=== PATIENT | male | born 1980 | race Caucasian/White ===

== ENCOUNTER 2016-12-04 08:39 | Inpatient (IN) | payer OTHER ==
[2016-12-04 08:57] VITALS: BMI 37.5
[2016-12-04] MEDS ORDERED: IBUPROFEN 400 MG TABLET (FP) PO PRN (10:27)
[2016-12-04] MEDS ORDERED: guaiFENesin/D-METHORPHAN HB 10 ML UNIT-DOSE CUPS PO PRN (10:27)
[2016-12-04] MEDS ORDERED: ACETAMINOPHEN 325 MG TABLET (FP) PO PRN (10:27)
[2016-12-04] MEDS ORDERED: hydrOXYzine PAMOATE 50 MG CAPSULE (FP) PO PRN (10:27)
[2016-12-04] MEDS ORDERED: LOPERAMIDE HCL 2 MG CAPSULE PO PRN (10:27)
[2016-12-04] MEDS ORDERED: P-EPHED 60MG/TRIPROLIDI 2.5MG TABLET PO PRN (10:27)
[2016-12-04] MEDS ORDERED: MENTHOL/PHENOL 1 EACH UD MM PRN (10:27)
[2016-12-04] MEDS ORDERED: MAG HYDROX/AL HYDROX/SIMETH 30 ML UNIT-DOSE CUP PO PRN (10:27)
[2016-12-04] MEDS ORDERED: MAGNESIUM HYDROX 2400MG/30ML ORAL SUSPENSION 30 ML CUP PO PRN (10:27)
[2016-12-04] MEDS ORDERED: MAGNESIUM CITRATE 300 ML BOTTLE PO PRN (10:27)
--- NOTE | 2016-12-04 10:29 | HP ---
COWS - Scale Resting Pulse: 1= [place] 81-100 Sweatin= Beads of Sweat on Face Restless Observation: 1= Difficult to Sit Still Pupil Size: 2= Moderately Dilated Bone or Joint Aches: 2= Severe Diffuse Aches Runny Nose/ Eye Tearin= Runny Nose/Eyes GI Upset > 30mins: 2= Nausea/Diarrhea Tremor Observation: 2= Slight Tremor Visible Yawning Observation: 1= 1-2x During Session Anxiety or Irritability: 2=Irritable/Anxious Goose Flesh Skin: 0=Smooth Skin COWS Score: 18 Admission ROS S - HPI Chief Complaint: Withdrawal sx. Allergies/Adverse Reactions: Allergies Allergy/AdvReac Type Severity Reaction Status Date / Time amoxicillin Allergy Unknown unknown Verified 12/04/16 10:20 penicillin G Allergy Unknown unknown Verified 12/04/16 10:20 History of Present Illness: 36 y/o man with a 3 yr. hx. of heroin dependence is admitted for detox. Pt. had one previous detox & rehab in June 2016. Exam Limitations: No Limitations - Ebola screening Have you traveled outside of the country in the last 21 days: No Have you had contact with anyone from an Ebola affected area: No Have you been sick,other than usual withdrawal symptoms: No Do you have a fever: No - Review of Systems Constitutional: Diaphoresis EENT: reports: Nose Congestion Respiratory: reports: No Symptoms reported Cardiac: reports: No Symptoms Reported GI: reports: Diarrhea, Nausea, Abdominal cramping : reports: No Symptoms Reported Musculoskeletal: reports: Back Pain, Joint Pain, Muscle Pain Integumentary: reports: Sweating Neuro: reports: Tremors Endocrine: reports: No Symptoms Reported Hematology: reports: No Symptoms Reported Psychiatric: reports: No Sypmtoms Reported Other Systems: Reviewed and Negative Patient History - Patient Medical History Hx Anemia: No Hx Asthma: No Hx Chronic Obstructive Pulmonary Disease (COPD): No Hx Cancer: No Hx Cardiac Disorders: No Hx Congestive Heart Failure: No Hx Hypertension: No Hx Hypercholesterolemia: No Hx Pacemaker: No HX Cerebrovascular Accident: No Hx Seizures: No Hx Dementia: No Hx Diabetes: No Hx Gastrointestinal Disorders: No Hx Liver Disease: Yes Hx Genitourinary Disorders: No Hx Sexually Transmitted Disorders: No Hx Renal Disease (ESRD): No Hx Thyroid Disease: No Hx Human Immunodeficiency Virus (HIV): No Hx Hepatitis C: Yes (Needs treatment) Hx Depression: No Hx Suicide Attempt: No Hx Bipolar Disorder: No Hx Schizophrenia: No - Patient Surgical History Past Surgical History: No Hx Neurologic Surgery: No Hx Cataract Extraction: No Hx Cardiac Surgery: No Hx Lung Surgery: No Hx Breast Surgery: No Hx Breast Biopsy: No Hx Abdominal Surgery: No Hx Appendectomy: No Hx Cholecystectomy: No Hx Genitourinary Surgery: No Hx Section: No Hx Orthopedic Surgery: No Anesthesia Reaction: No - PPD History Previous Implant?: Yes Documented Results: Negative w/o proof Implanted On Prior [facility] Admission?: No PPD to be Administered?: Yes - Smoking Cessation Smoking history: Current every day smoker Have you smoked in the past 12 months: Yes Aproximately how many cigarettes per day: 20 Hx Chewing Tobacco Use: No Initiated information on smoking cessation: Yes 'Breaking Loose' booklet given: 12/04/16 - Substance & Tx. History Hx Alcohol Use: No Hx Substance Use: Yes Substance Use Type: Heroin Hx Substance Use Treatment: Yes (Detox & Rehab at [facility] 06/2016) - Substances Abused Heroin Route: Injection Frequency: Daily Amount used: 20-30 bags Age of first use: 33 Date of Last Use: 12/03/16 Family Disease History - Family Disease History Family Disease History: Diabetes: Grandparent, Heart Disease: Grandparent, Father (HTN,Pulmonary fibrosis), Other: Father Admission Physical Exam [facility] - Vital Signs Vital Signs: Vital Signs - 24 hr 12/04/16 08:53 Temperature 96.8 F L Pulse Rate 82 Respiratory 18 Rate Blood Pressure 140/80 - Physical General Appearance: Yes: Tremorous, Irritable, Sweating, Anxious HEENTM: Yes: Nasal Congestion, Rhinorrhea Respiratory: Yes: Chest Non-Tender, Lungs Clear, Normal Breath Sounds Neck: Yes: Supple Breast: Yes: Breast Exam Deferred Cardiology: Yes: Regular Rhythm, Regular Rate, S1, S2 Abdominal: Yes: Normal Bowel Sounds, Non Tender, Soft Genitourinary: Yes: Within Normal Limits Back: Yes: Within Normal Limits Musculoskeletal: Yes: Within Normal Limits Extremities: Yes: Tremors Neurological: Yes: Fully Oriented, Alert Integumentary: Yes: Diaphoresis Lymphatic: Yes: Within Normal Limits - Diagnostic (1) Opioid dependence with withdrawal Current Visit: Yes Status: Acute Cleared for Admission [facility] - Detox or Rehab [facility] Level of Care: Medically Managed Detox Regimen/Protocol: Methadone [facility]HS Breath Alcohol Content Breath Alcohol Content: 0 Urine Drug Screen - Results Drug Screen Negative: No Urine Drug Screen Results: ANA-Cocaine, OPI-Opiates, MTD-Methadone
[2016-12-04] MEDS: diazePAM 5 MG TABLET PO PRN ×2 (11:25→22:30)
[2016-12-04] MEDS: cloNIDine HCL 0.1 MG TABLET PO SCH ×2 (11:25→22:31)
[2016-12-04 11:45] LABS: MEAN PLT VOLUME 8.4 fl (7.5-11.1)
[2016-12-04] MEDS ORDERED: METHADONE HCL 10 MG TABLET (FOR DETOX USE ONLY) PO ONE ×2 (11:45→23:00)
[2016-12-04 11:46] LABS: MCH 29.4 pg (25.7-33.7); MCHC 33.2 g/dl (32.0-35.9); MEAN CELL VOLUME 88.6 fl (80-96); PLATELET COUNT 285 K/MM3 (134-434); RDW 14.9 % (11.9-15.9); WHITE BLOOD COUNT 9.5 K/mm3 (4.0-10.0)
[2016-12-04 12:03] LABS: ALBUMIN 3.6 g/dl (3.4-5.0); ANION GAP 8 (8-16); BILIRUBIN,TOTAL 0.5 mg/dL (0.2-1.0); CALCIUM 8.9 mg/dL (8.5-10.1); CO2 26 mmol/L (21-32); GLUCOSE,RANDOM 107 mg/dL (74-106); SGOT/AST 11 U/L (15-37); TOT PROT 7.3 g/dl (6.4-8.2)
[2016-12-04 12:05] LABS: ALK PHOS 81 U/L (45-117); SGPT/ALT 21 U/L (12-78)
[2016-12-04 12:35] LABS: SICKLE CELL SCREEN NEGATIVE (NEGATIVE)
[2016-12-04 12:41] LABS: HIV 1 & 2 AB NEGATIVE; HIV 1 AGp24 NEGATIVE
[2016-12-04] MEDS: NICOTINE 21 MG/24 HOURS TOPICAL PATCH TD SCH (13:47)
[2016-12-04] MEDS: CYCLOBENZAPRINE HCL 10 MG TABLET (FP) PO SCH ×2 (13:56→22:28)
[2016-12-04 17:56] LABS: URINE APPEARANCE SLCLOUDY; URINE BILIRUBIN NEGATIVE (NEGATIVE); URINE BLOOD NEGATIVE (NEGATIVE); URINE COLOR DKYELLOW; URINE GLUCOSE (UA) NEGATIVE (NEGATIVE); URINE KETONE NEGATIVE (NEGATIVE)
[2016-12-04 17:57] LABS: URINE LEUK ESTERASE NEGATIVE (NEGATIVE); URINE NITRITE NEGATIVE (NEGATIVE); URINE PROTEIN NEGATIVE (NEGATIVE); URINE UROBILINOGEN NEGATIVE mg/dL (0.2-1.0)
[2016-12-04] MEDS: THIAMINE HCL 100 MG TABLET (FP) PO SCH (22:28)
[2016-12-04] MEDS: diphenhydrAMINE HCL 50 MG CAPSULE PO PRN (22:28)
[2016-12-05] MEDS: diazePAM 5 MG TABLET PO PRN ×4 (07:40→22:22)
[2016-12-05] MEDS: CYCLOBENZAPRINE HCL 10 MG TABLET (FP) PO SCH ×3 (07:43→22:17)
--- NOTE | 2016-12-05 09:53 | PN ---
BHS COWS - Scale Resting Pulse: 0= [place] 80 or Below Sweatin= Chills/Flushing Restless Observation: 3= Extraneous Movement Pupil Size: 2= Moderately Dilated Bone or Joint Aches: 4=Acute Joint/Muscle Pain Runny Nose/ Eye Tearin= Nasal Congestion GI Upset > 30mins: 1= Stomach Cramp Tremor Observation of Outstretched Hands: 2= Slight Tremor Visible Yawning Observation: 1= 1-2x During Session Anxiety or Irritability: 2=Irritable/Anxious Goose Flesh Skin: 0=Smooth Skin COWS Score: 17 BHS Progress Note (SOAP) Subjective: ANXIETY,IRRITABILITY,TREMORS,SWEATS,MUSCLE ACHES Objective: 12/05/16 09:53 Vital Signs Temperature 96.4 F L 12/05/16 09:25 Pulse Rate 56 L 12/05/16 09:25 Respiratory Rate 18 12/05/16 09:25 Blood Pressure 141/92 12/05/16 09:25 O2 Sat by Pulse Oximetry (%) Laboratory Last Values WBC 9.5 K/mm3 (4.0-10.0) 12/04/16 10:40 RBC 4.40 M/mm3 (4.00-5.60) 12/04/16 10:40 Hgb 12.9 GM/dL (11.7-16.9) 12/04/16 10:40 Hct 39.0 % (35.4-49) 12/04/16 10:40 MCV 88.6 fl (80-96) 12/04/16 10:40 MCH 29.4 pg (25.7-33.7) 12/04/16 10:40 MCHC 33.2 g/dl (32.0-35.9) 12/04/16 10:40 RDW 14.9 % (11.9-15.9) 12/04/16 10:40 Plt Count 285 K/MM3 (134-434) 12/04/16 10:40 MPV 8.4 fl (7.5-11.1) 12/04/16 10:40 Sickle Cell Screen Negative (NEGATIVE) 12/04/16 10:40 Sodium 141 mmol/L (136-145) 12/04/16 10:40 Potassium 3.7 mmol/L (3.5-5.1) 12/04/16 10:40 Chloride 107 mmol/L (98-107) 12/04/16 10:40 Carbon Dioxide 26 mmol/L (21-32) 12/04/16 10:40 Anion Gap 8 (8-16) 12/04/16 10:40 BUN 11 mg/dL (7-18) 12/04/16 10:40 Creatinine 1.0 mg/dL (0.7-1.3) 12/04/16 10:40 Creat Clearance w eGFR > 60 (>60) 12/04/16 10:40 Random Glucose 107 mg/dL (74-106) H 12/04/16 10:40 Calcium 8.9 mg/dL (8.5-10.1) 12/04/16 10:40 Total Bilirubin 0.5 mg/dL (0.2-1.0) 12/04/16 10:40 AST 11 U/L (15-37) L 12/04/16 10:40 ALT 21 U/L (12-78) 12/04/16 10:40 Alkaline Phosphatase 81 U/L (45-117) 12/04/16 10:40 Total Protein 7.3 g/dl (6.4-8.2) 12/04/16 10:40 Albumin 3.6 g/dl (3.4-5.0) 12/04/16 10:40 Urine Color Dkyellow 12/04/16 14:00 Urine Appearance Slcloudy 12/04/16 14:00 Urine pH 5.0 (5.0-8.0) 12/04/16 14:00 Ur Specific [place] >= 1.030 (1.005-1.025) H 12/04/16 14:00 Urine Protein Negative (NEGATIVE) 12/04/16 14:00 Urine Glucose (UA) Negative (NEGATIVE) 12/04/16 14:00 Urine Ketones Negative (NEGATIVE) 12/04/16 14:00 Urine Blood Negative (NEGATIVE) 12/04/16 14:00 Urine Nitrite Negative (NEGATIVE) 12/04/16 14:00 Urine Bilirubin Negative (NEGATIVE) 12/04/16 14:00 Urine Urobilinogen Negative mg/dL (0.2-1.0) 12/04/16 14:00 Ur Leukocyte Esterase Negative (NEGATIVE) 12/04/16 14:00 HIV 1&2 Antibody Screen Negative 12/04/16 09:30 HIV P24 Antigen Negative 12/04/16 09:30 Assessment: 12/05/16 09:53 WITHDRAWALS SX Plan: CONTINUE DETOX
[2016-12-05] MEDS ORDERED: METHADONE HCL 10 MG TABLET (FOR DETOX USE ONLY) PO ONE (10:00)
[2016-12-05] MEDS: PRENATAL VITAMINS W/ FOLIC ACID TABLET (FP) PO SCH (10:16)
[2016-12-05] MEDS: cloNIDine HCL 0.1 MG TABLET PO SCH ×2 (10:16→22:17)
[2016-12-05] MEDS: NICOTINE POLACRILEX 2 MG GUM BC PRN (10:17)
[2016-12-05] MEDS: NICOTINE 21 MG/24 HOURS TOPICAL PATCH TD SCH (10:17)
--- NOTE | 2016-12-05 12:57 | EKG ---
Test Reason : Blood Pressure : / mmHG Vent. Rate : 065 BPM Atrial Rate : 065 BPM P-R Int : 132 ms QRS Dur : 098 ms QT Int : 400 ms P-R-T Axes : 029 -05 -09 degrees QTc Int : 416 ms NORMAL SINUS RHYTHM INCOMPLETE RIGHT BUNDLE BRANCH BLOCK VOLTAGE CRITERIA FOR LEFT VENTRICULAR HYPERTROPHY NONSPECIFIC T WAVE ABNORMALITY ABNORMAL ECG NO PREVIOUS ECGS AVAILABLE Confirmed by BASIL SILVA MD ([id number]) on 12/05/2016 12:57:01 PM Referred By: Confirmed By:BASIL SILVA MD
[2016-12-05] MEDS: THIAMINE HCL 100 MG TABLET (FP) PO SCH (22:17)
[2016-12-06] MEDS: CYCLOBENZAPRINE HCL 10 MG TABLET (FP) PO SCH ×3 (05:51→22:12)
[2016-12-06] MEDS: diazePAM 5 MG TABLET PO PRN ×5 (05:52→22:38)
[2016-12-06] MEDS ORDERED: METHADONE HCL 5 MG TABLET (FOR DETOX USE ONLY) PO ONE (10:00)
[2016-12-06] MEDS: PRENATAL VITAMINS W/ FOLIC ACID TABLET (FP) PO SCH (10:14)
[2016-12-06] MEDS: cloNIDine HCL 0.1 MG TABLET PO SCH ×2 (10:15→22:12)
[2016-12-06] MEDS: NICOTINE 21 MG/24 HOURS TOPICAL PATCH TD SCH (10:16)
[2016-12-06] MEDS: NICOTINE POLACRILEX 2 MG GUM BC PRN (10:17)
--- NOTE | 2016-12-06 11:15 | PN ---
BHS COWS - Scale Resting Pulse: 0= [place] 80 or Below Sweatin= Chills/Flushing Restless Observation: 3= Extraneous Movement Pupil Size: 2= Moderately Dilated Bone or Joint Aches: 4=Acute Joint/Muscle Pain Runny Nose/ Eye Tearin= Nasal Congestion GI Upset > 30mins: 1= Stomach Cramp Tremor Observation of Outstretched Hands: 2= Slight Tremor Visible Yawning Observation: 1= 1-2x During Session Anxiety or Irritability: 2=Irritable/Anxious Goose Flesh Skin: 0=Smooth Skin COWS Score: 17 BHS Progress Note (SOAP) Subjective: ANXIETY,SWEATS,TREMORS,IRRITABILITY. Objective: 12/06/16 11:14 Vital Signs Temperature 96.4 F L 12/06/16 10:06 Pulse Rate 59 L 12/06/16 10:06 Respiratory Rate 18 12/06/16 10:06 Blood Pressure 138/95 12/06/16 10:06 O2 Sat by Pulse Oximetry (%) Laboratory Last Values WBC 9.5 K/mm3 (4.0-10.0) 12/04/16 10:40 RBC 4.40 M/mm3 (4.00-5.60) 12/04/16 10:40 Hgb 12.9 GM/dL (11.7-16.9) 12/04/16 10:40 Hct 39.0 % (35.4-49) 12/04/16 10:40 MCV 88.6 fl (80-96) 12/04/16 10:40 MCH 29.4 pg (25.7-33.7) 12/04/16 10:40 MCHC 33.2 g/dl (32.0-35.9) 12/04/16 10:40 RDW 14.9 % (11.9-15.9) 12/04/16 10:40 Plt Count 285 K/MM3 (134-434) 12/04/16 10:40 MPV 8.4 fl (7.5-11.1) 12/04/16 10:40 Sickle Cell Screen Negative (NEGATIVE) 12/04/16 10:40 Sodium 141 mmol/L (136-145) 12/04/16 10:40 Potassium 3.7 mmol/L (3.5-5.1) 12/04/16 10:40 Chloride 107 mmol/L (98-107) 12/04/16 10:40 Carbon Dioxide 26 mmol/L (21-32) 12/04/16 10:40 Anion Gap 8 (8-16) 12/04/16 10:40 BUN 11 mg/dL (7-18) 12/04/16 10:40 Creatinine 1.0 mg/dL (0.7-1.3) 12/04/16 10:40 Creat Clearance w eGFR > 60 (>60) 12/04/16 10:40 Random Glucose 107 mg/dL (74-106) H 12/04/16 10:40 Calcium 8.9 mg/dL (8.5-10.1) 12/04/16 10:40 Total Bilirubin 0.5 mg/dL (0.2-1.0) 12/04/16 10:40 AST 11 U/L (15-37) L 12/04/16 10:40 ALT 21 U/L (12-78) 12/04/16 10:40 Alkaline Phosphatase 81 U/L (45-117) 12/04/16 10:40 Total Protein 7.3 g/dl (6.4-8.2) 12/04/16 10:40 Albumin 3.6 g/dl (3.4-5.0) 12/04/16 10:40 Urine Color Dkyellow 12/04/16 14:00 Urine Appearance Slcloudy 12/04/16 14:00 Urine pH 5.0 (5.0-8.0) 12/04/16 14:00 Ur Specific [place] >= 1.030 (1.005-1.025) H 12/04/16 14:00 Urine Protein Negative (NEGATIVE) 12/04/16 14:00 Urine Glucose (UA) Negative (NEGATIVE) 12/04/16 14:00 Urine Ketones Negative (NEGATIVE) 12/04/16 14:00 Urine Blood Negative (NEGATIVE) 12/04/16 14:00 Urine Nitrite Negative (NEGATIVE) 12/04/16 14:00 Urine Bilirubin Negative (NEGATIVE) 12/04/16 14:00 Urine Urobilinogen Negative mg/dL (0.2-1.0) 12/04/16 14:00 Ur Leukocyte Esterase Negative (NEGATIVE) 12/04/16 14:00 HIV 1&2 Antibody Screen Negative 12/04/16 09:30 HIV P24 Antigen Negative 12/04/16 09:30 Assessment: 12/06/16 11:15 WITHDRAWAL SX Plan: CONTINUE DETOX
[2016-12-06] MEDS: CLINDAMYCIN HCL 150 MG CAPSULE (FP) PO SCH ×2 (17:11→23:28)
[2016-12-06] MEDS: THIAMINE HCL 100 MG TABLET (FP) PO SCH (22:11)
[2016-12-06] MEDS: diphenhydrAMINE HCL 50 MG CAPSULE PO PRN (22:39)
[2016-12-06] MEDS: BACITRACIN 0.9 GM PACKET TP SCH (22:50)
[2016-12-07] MEDS: CLINDAMYCIN HCL 150 MG CAPSULE (FP) PO SCH ×4 (05:50→23:02)
[2016-12-07] MEDS: CYCLOBENZAPRINE HCL 10 MG TABLET (FP) PO SCH ×3 (05:50→22:12)
[2016-12-07] MEDS: diazePAM 5 MG TABLET PO PRN ×2 (05:52→10:11)
[2016-12-07] MEDS ORDERED: METHADONE HCL 5 MG TABLET (FOR DETOX USE ONLY) PO ONE (10:00)
[2016-12-07] MEDS: PRENATAL VITAMINS W/ FOLIC ACID TABLET (FP) PO SCH (10:11)
[2016-12-07] MEDS: cloNIDine HCL 0.1 MG TABLET PO SCH ×2 (10:11→22:12)
[2016-12-07] MEDS: NICOTINE 21 MG/24 HOURS TOPICAL PATCH TD SCH (10:12)
[2016-12-07] MEDS: BACITRACIN 0.9 GM PACKET TP SCH ×2 (10:12→22:12)
[2016-12-07] MEDS: NICOTINE POLACRILEX 2 MG GUM BC PRN ×2 (10:15→14:54)
--- NOTE | 2016-12-07 10:39 | PN ---
BHS Progress Note (SOAP) Subjective: ANXIETY,SWEATS,FATIGUE. Objective: 12/07/16 10:38 Vital Signs Temperature 96.9 F L 12/07/16 10:33 Pulse Rate 66 12/07/16 10:33 Respiratory Rate 18 12/07/16 10:33 Blood Pressure 146/97 12/07/16 10:33 O2 Sat by Pulse Oximetry (%) Assessment: 12/07/16 10:38 WITHDRAWAL SX Plan: CONTINUE DETOX
[2016-12-07] MEDS: THIAMINE HCL 100 MG TABLET (FP) PO SCH (22:12)
[2016-12-07] MEDS: diphenhydrAMINE HCL 50 MG CAPSULE PO PRN (22:13)
[2016-12-08] MEDS: CYCLOBENZAPRINE HCL 10 MG TABLET (FP) PO SCH (05:51)
[2016-12-08] MEDS: CLINDAMYCIN HCL 150 MG CAPSULE (FP) PO SCH ×2 (05:51→11:13)
[2016-12-08 09:53] VITALS: BP 142/91; PULSE 85; TEMP 97.2
[2016-12-08] MEDS ORDERED: METHADONE HCL 10 MG TABLET (FOR DETOX USE ONLY) PO ONE (10:00)
[2016-12-08] MEDS: cloNIDine HCL 0.1 MG TABLET PO SCH (10:08)
[2016-12-08] MEDS: PRENATAL VITAMINS W/ FOLIC ACID TABLET (FP) PO SCH (10:08)
[2016-12-08] MEDS: NICOTINE 21 MG/24 HOURS TOPICAL PATCH TD SCH (10:08)
[2016-12-08] MEDS: BACITRACIN 0.9 GM PACKET TP SCH (10:08)
--- NOTE | 2016-12-08 19:12 | DS ---
[facility] Detox Discharge Summary Admission Date: 12/04/16 Discharge Date: 12/08/16 - History Present History: Opioid Dependence Additional Comments: PATIENT GOING HOME AND WILL RETURN TO WORK. PATIENT NOTES THAT HE WILL LOOK INTO LOCAL 12-STEP / NA OUTPATIENT SUPPORT GROUP MEETINGS FOR AFTERCARE. PATIENT DISCHARGED FROM UNIT IN STABLE MEDICAL CONDITION. Pertinent Past History: Hep C. - Physical Exam Results Vital Signs: Vital Signs Temperature 97.2 F L 12/08/16 09:50 Pulse Rate 85 12/08/16 09:50 Respiratory Rate 18 12/08/16 09:50 Blood Pressure 142/91 12/08/16 09:50 O2 Sat by Pulse Oximetry (%) Pertinent Admission Physical Exam Findings: WITHDRAWAL SYMPTOMS. Laboratory Tests 12/04/16 12/04/16 12/04/16 09:30 10:40 10:40 WBC 9.5 RBC 4.40 Hgb 12.9 Hct 39.0 MCV 88.6 MCH 29.4 MCHC 33.2 RDW 14.9 Plt Count 285 MPV 8.4 Sickle Cell Screen Negative Sodium 141 Potassium 3.7 Chloride 107 Carbon Dioxide 26 Anion Gap 8 BUN 11 Creatinine 1.0 Creat Clearance w eGFR > 60 Random Glucose 107 H Calcium 8.9 Total Bilirubin 0.5 AST 11 L ALT 21 Alkaline Phosphatase 81 Total Protein 7.3 Albumin 3.6 Urine Color Urine Appearance Urine pH Ur Specific [place] Urine Protein Urine Glucose (UA) Urine Ketones Urine Blood Urine Nitrite Urine Bilirubin Urine Urobilinogen Ur Leukocyte Esterase RPR Titer HIV 1&2 Antibody Screen Negative HIV P24 Antigen Negative 12/04/16 12/04/16 10:40 14:00 WBC RBC Hgb Hct MCV MCH MCHC RDW Plt Count MPV Sickle Cell Screen Sodium Potassium Chloride Carbon Dioxide Anion Gap BUN Creatinine Creat Clearance w eGFR Random Glucose Calcium Total Bilirubin AST ALT Alkaline Phosphatase Total Protein Albumin Urine Color Dkyellow Urine Appearance Slcloudy Urine pH 5.0 Ur Specific [place] >= 1.030 H Urine Protein Negative Urine Glucose (UA) Negative Urine Ketones Negative Urine Blood Negative Urine Nitrite Negative Urine Bilirubin Negative Urine Urobilinogen Negative Ur Leukocyte Esterase Negative RPR Titer Nonreactive HIV 1&2 Antibody Screen HIV P24 Antigen LABS NOTED. - Treatment Hospital Course: Detox Protocol Followed, Detoxed Safely, Responded well, Discharged Condition Good Patient has Accepted a Rehab Referral to: PT. GOING HOME, WILL PURSUE OUTPATIENT 12-STEP / NA SUPPORT GROUP MEETINGS. - Medication Discharge Medications: Ambulatory Orders NK [No Known Home Medication] 12/04/16 - Diagnosis (1) Opioid dependence with withdrawal Status: Acute - AMA Did Patient Leave Against Medical Advice: No
[2016-12-09] MEDS ORDERED: METHADONE HCL 5 MG TABLET (FOR DETOX USE ONLY) PO ONE (06:00)
== END 2016-12-08 11:05 | disposition home or self-care (01) | DRG 773 ==
LOC: YASAS 08:39 → Y3N 10:50
PROVIDERS: ADMIT Internal Medicine; ATTEND Internal Medicine
PROC: HZ2ZZZZ Detoxification Services for Substance Abuse Treatment (ICD-10-PCS; principal; 2016-12-08)
DX: F11.23 Opioid dependence with withdrawal (principal); F17.210 Nicotine dependence, cigarettes, uncomplicated; B18.2 Chronic viral hepatitis C
CPT/HCPCS: 36415; 80053; 81003; 85027; 85660; 86593; 87389; 93005; 93010

== ENCOUNTER 2017-02-08 08:47 | Inpatient (IN) | payer OTHER ==
[2017-02-08 10:38] VITALS: BMI 39.1
--- NOTE | 2017-02-08 13:57 | HP ---
COWS - Scale Resting Pulse: 0= [place] 80 or Below Sweatin= Chills/Flushing Restless Observation: 1= Difficult to Sit Still Pupil Size: 1= Pupils >than Normal Bone or Joint Aches: 2= Severe Diffuse Aches Runny Nose/ Eye Tearin= Runny Nose/Eyes GI Upset > 30mins: 2= Nausea/Diarrhea Tremor Observation: 1= Tremor [place], Not Seen Yawning Observation: 0= None Anxiety or Irritability: 1=Feels Anxious/Irritable Goose Flesh Skin: 3=Piloerection COWS Score: 14 Admission ROS S - HPI Chief Complaint: I need help to stop using heroin and cocaine Allergies/Adverse Reactions: Allergies Allergy/AdvReac Type Severity Reaction Status Date / Time amoxicillin Allergy Unknown unknown Verified 02/08/17 11:45 penicillin G Allergy Unknown unknown Verified 02/08/17 11:45 History of Present Illness: h/o opioid dep. since age 31 . Started after being rx'ed with vicodin for herniated disc disease. Pt then moved onto [facility] at age 34. Exam Limitations: No Limitations - Ebola screening Have you traveled outside of the country in the last 21 days: No Have you had contact with anyone from an Ebola affected area: No Have you been sick,other than usual withdrawal symptoms: No - Review of Systems Constitutional: Malaise EENT: reports: Nose Congestion Respiratory: reports: No Symptoms reported Cardiac: reports: No Symptoms Reported GI: reports: Nausea : reports: No Symptoms Reported Musculoskeletal: reports: Joint Pain (hips and other joints) Integumentary: reports: No Symptoms Reported Neuro: reports: No Symptoms reported Endocrine: reports: No Symptoms Reported Hematology: reports: No Symptoms Reported Psychiatric: reports: No Sypmtoms Reported Other Systems: Reviewed and Negative Patient History - Patient Medical History Hx Anemia: No Hx Asthma: No Hx Chronic Obstructive Pulmonary Disease (COPD): No Hx Cancer: No Hx Cardiac Disorders: No Hx Congestive Heart Failure: No Hx Hypertension: No Hx Hypercholesterolemia: No Hx Pacemaker: No HX Cerebrovascular Accident: No Hx Seizures: No Hx Dementia: No Hx Diabetes: No Hx Gastrointestinal Disorders: No Hx Liver Disease: Yes Hx Genitourinary Disorders: No Hx Sexually Transmitted Disorders: No Hx Renal Disease (ESRD): No Hx Thyroid Disease: No Hx Human Immunodeficiency Virus (HIV): No Hx Hepatitis C: Yes (Needs treatment) Hx Depression: No Hx Suicide Attempt: No Hx Bipolar Disorder: No Hx Schizophrenia: No - Patient Surgical History Past Surgical History: No Hx Neurologic Surgery: No Hx Cataract Extraction: No Hx Cardiac Surgery: No Hx Lung Surgery: No Hx Breast Surgery: No Hx Breast Biopsy: No Hx Abdominal Surgery: No Hx Appendectomy: No Hx Cholecystectomy: No Hx Genitourinary Surgery: No Hx Section: No Hx Orthopedic Surgery: No Anesthesia Reaction: No - PPD History Previous Implant?: Yes Documented Results: Negative w/proof Implanted On Prior [facility] Admission?: Yes Date: 12/06/16 Results: 0 mm - Reproductive History Patient is a Female of Child Bearing Age (11 -55 yrs old): No - Smoking Cessation Smoking history: Current every day smoker Have you smoked in the past 12 months: Yes Aproximately how many cigarettes per day: 20 Cigars Per Day: 0 Hx Chewing Tobacco Use: No Initiated information on smoking cessation: Yes 'Breaking Loose' booklet given: 02/08/17 - Substance & Tx. History Hx Alcohol Use: No Hx Substance Use: Yes Substance Use Type: Cocaine, Heroin Hx Substance Use Treatment: Yes - Substances Abused Heroin Route: Injection Frequency: Daily Amount used: 3-4 bags Age of first use: 34 Date of Last Use: 02/08/17 Cocaine Route: Inhalation Frequency: 1-3 times last 30 days Amount used: $20./use Age of first use: 19 Date of Last Use: 02/04/17 Family Disease History - Family Disease History Family Disease History: Diabetes: Grandparent, Heart Disease: Grandparent, Father (HTN,Pulmonary fibrosis), Other: Father Admission Physical Exam BHS - Vital Signs Vital Signs: Vital Signs - 24 hr 02/08/17 10:36 Temperature 96.6 F L Pulse Rate 62 Respiratory 20 Rate Blood Pressure 126/84 36 y/o obese m pt aox3, appearing uncomfortable in nad and cooperative with exam. - Physical General Appearance: Yes: Disheveled, Obese, Irritable, Sweating HEENTM: Yes: EOMI, Hearing grossly Normal, Normocephalic, Normal Voice, ESTRELLA, Nasal Congestion Respiratory: Yes: Chest Non-Tender, Lungs Clear, Normal Breath Sounds, No Respiratory Distress Neck: Yes: Supple, Trachea in good position Breast: Yes: Within Normal Limits Cardiology: Yes: Regular Rhythm, Regular Rate, S1, S2 Abdominal: Yes: Non Tender, Flat, Increased Bowel Sounds, Protuberent Genitourinary: Yes: Within Normal Limits Back: Yes: Decreased Range of Motion Musculoskeletal: Yes: Joint Stiffness, Muscle Pain Extremities: Yes: Within Normal Limits Neurological: Yes: mechanical maintenance foreman II-XII NML intact, Fully Oriented, Alert, Motor Strength 5/5 Integumentary: Yes: Moist, Other (multiple tattooos arms chest rajesh.) Lymphatic: Yes: Within Normal Limits - Diagnostic (1) Opioid dependence with withdrawal Current Visit: Yes Status: Chronic (2) History of herniated intervertebral disc Current Visit: Yes Status: Chronic (3) Hx of hepatitis C Current Visit: Yes Status: Chronic (4) Obesity Current Visit: Yes Status: Chronic Cleared for Admission [facility] - Detox or Rehab [facility] Level of Care: Medically Managed Detox Regimen/Protocol: Methadone [facility] Breath Alcohol Content Breath Alcohol Content: 0 Urine Drug Screen - Results Drug Screen Negative: No Urine Drug Screen Results: ANA-Cocaine, OPI-Opiates, MDMA-Ecstasy, BZO- Benzodiazepines
[2017-02-08] MEDS ORDERED: guaiFENesin/D-METHORPHAN HB 10 ML UNIT-DOSE CUPS PO PRN (14:08)
[2017-02-08] MEDS ORDERED: MAGNESIUM CITRATE 300 ML BOTTLE PO PRN (14:08)
[2017-02-08] MEDS ORDERED: IBUPROFEN 400 MG TABLET (FP) PO PRN (14:08)
[2017-02-08] MEDS ORDERED: ACETAMINOPHEN 325 MG TABLET (FP) PO PRN (14:08)
[2017-02-08] MEDS ORDERED: P-EPHED 60MG/TRIPROLIDI 2.5MG TABLET PO PRN (14:08)
[2017-02-08] MEDS ORDERED: MAG HYDROX/AL HYDROX/SIMETH 30 ML UNIT-DOSE CUP PO PRN (14:08)
[2017-02-08] MEDS ORDERED: MAGNESIUM HYDROX 2400MG/30ML ORAL SUSPENSION 30 ML CUP PO PRN (14:08)
[2017-02-08] MEDS ORDERED: MENTHOL/PHENOL 1 EACH UD MM PRN (14:08)
[2017-02-08] MEDS ORDERED: LOPERAMIDE HCL 2 MG CAPSULE PO PRN (14:08)
[2017-02-08] MEDS ORDERED: METHADONE HCL 10 MG TABLET (FOR DETOX USE ONLY) PO ONE ×2 (14:12→23:00)
[2017-02-08] MEDS: diazePAM 5 MG TABLET PO PRN ×3 (14:53→23:24)
[2017-02-08 18:57] LABS: URINE APPEARANCE CLEAR; URINE BILIRUBIN NEGATIVE (NEGATIVE); URINE BLOOD NEGATIVE (NEGATIVE); URINE COLOR YELLOW; URINE GLUCOSE (UA) NEGATIVE (NEGATIVE); URINE KETONE NEGATIVE (NEGATIVE); URINE NITRITE NEGATIVE (NEGATIVE); URINE PROTEIN NEGATIVE (NEGATIVE); URINE UROBILINOGEN NEGATIVE mg/dL (0.2-1.0)
[2017-02-08 21:37] LABS: URINE LEUK ESTERASE Negative (NEGATIVE)
[2017-02-08] MEDS: diphenhydrAMINE HCL 50 MG CAPSULE PO PRN (22:46)
[2017-02-08] MEDS: THIAMINE HCL 100 MG TABLET (FP) PO SCH (22:46)
[2017-02-09] MEDS: diazePAM 5 MG TABLET PO PRN ×4 (05:48→22:34)
[2017-02-09] MEDS: hydrOXYzine PAMOATE 25 MG CAPSULE (FP) PO PRN ×2 (09:05→13:56)
[2017-02-09] MEDS ORDERED: METHADONE HCL 10 MG TABLET (FOR DETOX USE ONLY) PO ONE (10:00)
[2017-02-09] MEDS: NICOTINE 21 MG/24 HOURS TOPICAL PATCH TD SCH (10:20)
[2017-02-09] MEDS: PRENATAL VITAMINS W/ FOLIC ACID TABLET (FP) PO SCH (10:20)
[2017-02-09 11:05] LABS: MCH 29.2 pg (25.7-33.7); MCHC 33.6 g/dl (32.0-35.9); MEAN PLT VOLUME 9.5 fl (7.5-11.1); PLATELET COUNT 281 K/MM3 (134-434); RDW 16.3 % (11.9-15.9); WHITE BLOOD COUNT 9.6 K/mm3 (4.0-10.0)
[2017-02-09 11:27] LABS: ALBUMIN 3.6 g/dl (3.4-5.0); ALK PHOS 80 U/L (45-117); ANION GAP 9 (8-16); BILIRUBIN,TOTAL 0.5 mg/dL (0.2-1.0); CALCIUM 8.9 mg/dL (8.5-10.1); CO2 28 mmol/L (21-32); CREATININE 0.7 mg/dL (0.7-1.3); GLUCOSE,RANDOM 103 mg/dL (74-106); SGOT/AST 8 U/L (15-37); SGPT/ALT 18 U/L (12-78); TOT PROT 6.8 g/dl (6.4-8.2)
--- NOTE | 2017-02-09 13:26 | PN ---
BHS COWS - Scale Resting Pulse: 1= [place] 81-100 Sweatin= Chills/Flushing Restless Observation: 3= Extraneous Movement Pupil Size: 1= Pupils >than Normal Bone or Joint Aches: 2= Severe Diffuse Aches Runny Nose/ Eye Tearin= Runny Nose/Eyes GI Upset > 30mins: 3= Vomiting/Diarrhea Tremor Observation of Outstretched Hands: 2= Slight Tremor Visible Yawning Observation: 1= 1-2x During Session Anxiety or Irritability: 2=Irritable/Anxious Goose Flesh Skin: 0=Smooth Skin COWS Score: 18 S Progress Note (SOAP) Subjective: ALERT,IRRITABLE,ANXIOUS,INTERRUPTED SLEEP,TREMOR,PAIN IN THE BODY AND BACK, TREMOR Objective: 02/09/17 13:24 Vital Signs Temperature 97.9 F 02/09/17 10:33 Pulse Rate 83 02/09/17 10:33 Respiratory Rate 20 02/09/17 10:33 Blood Pressure 154/83 02/09/17 10:33 O2 Sat by Pulse Oximetry (%) EKG NSR,NORMAL ECG 02/09/17 13:25 Laboratory Last Values WBC 9.6 K/mm3 (4.0-10.0) 02/09/17 06:08 RBC 4.30 M/mm3 (4.00-5.60) 02/09/17 06:08 Hgb 12.6 GM/dL (11.7-16.9) 02/09/17 06:08 Hct 37.4 % (35.4-49) 02/09/17 06:08 MCV 87.0 fl (80-96) 02/09/17 06:08 MCH 29.2 pg (25.7-33.7) 02/09/17 06:08 MCHC 33.6 g/dl (32.0-35.9) 02/09/17 06:08 RDW 16.3 % (11.9-15.9) H 02/09/17 06:08 Plt Count 281 K/MM3 (134-434) 02/09/17 06:08 MPV 9.5 fl (7.5-11.1) D 02/09/17 06:08 Sodium 139 mmol/L (136-145) 02/09/17 06:08 Potassium 3.7 mmol/L (3.5-5.1) 02/09/17 06:08 Chloride 102 mmol/L (98-107) 02/09/17 06:08 Carbon Dioxide 28 mmol/L (21-32) 02/09/17 06:08 Anion Gap 9 (8-16) 02/09/17 06:08 BUN 13 mg/dL (7-18) 02/09/17 06:08 Creatinine 0.7 mg/dL (0.7-1.3) D 02/09/17 06:08 Creat Clearance w eGFR > 60 (>60) 02/09/17 06:08 Random Glucose 103 mg/dL (74-106) 02/09/17 06:08 Calcium 8.9 mg/dL (8.5-10.1) 02/09/17 06:08 Total Bilirubin 0.5 mg/dL (0.2-1.0) 02/09/17 06:08 AST 8 U/L (15-37) L D 02/09/17 06:08 ALT 18 U/L (12-78) 02/09/17 06:08 Alkaline Phosphatase 80 U/L (45-117) 02/09/17 06:08 Total Protein 6.8 g/dl (6.4-8.2) 02/09/17 06:08 Albumin 3.6 g/dl (3.4-5.0) 02/09/17 06:08 Urine Color Yellow 02/08/17 17:30 Urine Appearance Clear 02/08/17 17:30 Urine pH 5.0 (5.0-8.0) 02/08/17 17:30 Ur Specific [place] 1.020 (1.005-1.025) 02/08/17 17:30 Urine Protein Negative (NEGATIVE) 02/08/17 17:30 Urine Glucose (UA) Negative (NEGATIVE) 02/08/17 17:30 Urine Ketones Negative (NEGATIVE) 02/08/17 17:30 Urine Blood Negative (NEGATIVE) 02/08/17 17:30 Urine Nitrite Negative (NEGATIVE) 02/08/17 17:30 Urine Bilirubin Negative (NEGATIVE) 02/08/17 17:30 Urine Urobilinogen Negative mg/dL (0.2-1.0) 02/08/17 17:30 Ur Leukocyte Esterase Negative (NEGATIVE) 02/08/17 17:30 RPR Titer Nonreactive (NONREACTIVE) 02/09/17 06:08 Assessment: 02/09/17 13:25 WITHDRAWAL SYMPTOM Plan: CONTINUE DETOX
[2017-02-09] MEDS: CYCLOBENZAPRINE HCL 10 MG TABLET (FP) PO PRN (13:56)
[2017-02-09] MEDS: cloNIDine HCL 0.1 MG TABLET PO SCH (22:32)
[2017-02-09] MEDS: THIAMINE HCL 100 MG TABLET (FP) PO SCH (22:33)
[2017-02-09] MEDS: NICOTINE POLACRILEX 4 MG GUM BUC PRN (23:04)
--- NOTE | 2017-02-10 09:12 | EKG ---
Test Reason : Blood Pressure : / mmHG Vent. Rate : 063 BPM Atrial Rate : 063 BPM P-R Int : 132 ms QRS Dur : 088 ms QT Int : 430 ms P-R-T Axes : 038 007 002 degrees QTc Int : 440 ms NORMAL SINUS RHYTHM NORMAL ECG WHEN COMPARED WITH ECG OF 04-DEC-2016 10:31, INCOMPLETE RIGHT BUNDLE BRANCH BLOCK IS NO LONGER PRESENT NONSPECIFIC T WAVE ABNORMALITY NO LONGER EVIDENT IN LATERAL LEADS Confirmed by RICARDO BAE, BASIL ([id number]) on 02/10/2017 9:12:21 AM Referred By: Confirmed By:BASIL SILVA MD
[2017-02-10] MEDS ORDERED: METHADONE HCL 5 MG TABLET (FOR DETOX USE ONLY) PO ONE (10:00)
[2017-02-10] MEDS: cloNIDine HCL 0.1 MG TABLET PO SCH ×2 (10:14→22:12)
[2017-02-10] MEDS: CYCLOBENZAPRINE HCL 10 MG TABLET (FP) PO PRN ×2 (10:15→19:18)
[2017-02-10] MEDS: NICOTINE 21 MG/24 HOURS TOPICAL PATCH TD SCH (10:15)
[2017-02-10] MEDS: diazePAM 5 MG TABLET PO PRN ×3 (10:15→19:46)
[2017-02-10] MEDS: PRENATAL VITAMINS W/ FOLIC ACID TABLET (FP) PO SCH (10:15)
--- NOTE | 2017-02-10 13:37 | PN ---
[facility] COWS - Scale Resting Pulse: 0= CT 80 or Below Sweatin= Chills/Flushing Restless Observation: 3= Extraneous Movement Pupil Size: 1= Pupils >than Normal Bone or Joint Aches: 2= Severe Diffuse Aches Runny Nose/ Eye Tearin= Nasal Congestion GI Upset > 30mins: 2= Nausea/Diarrhea Tremor Observation of Outstretched Hands: 2= Slight Tremor Visible Yawning Observation: 1= 1-2x During Session Anxiety or Irritability: 2=Irritable/Anxious Goose Flesh Skin: 0=Smooth Skin COWS Score: 15 B[facility] Progress Note (SOAP) Subjective: ALERT,IRRITABLE,ANXIOUS,INTERRUPTED SLEEP,PAIN IN THE BODY AND BACK Objective: 02/10/17 13:36 Vital Signs Temperature 96.6 F L 02/10/17 10:00 Pulse Rate 69 02/10/17 10:00 Respiratory Rate 18 02/10/17 10:00 Blood Pressure 148/94 02/10/17 10:00 O2 Sat by Pulse Oximetry (%) Laboratory Last Values WBC 9.6 K/mm3 (4.0-10.0) 02/09/17 06:08 RBC 4.30 M/mm3 (4.00-5.60) 02/09/17 06:08 Hgb 12.6 GM/dL (11.7-16.9) 02/09/17 06:08 Hct 37.4 % (35.4-49) 02/09/17 06:08 MCV 87.0 fl (80-96) 02/09/17 06:08 MCH 29.2 pg (25.7-33.7) 02/09/17 06:08 MCHC 33.6 g/dl (32.0-35.9) 02/09/17 06:08 RDW 16.3 % (11.9-15.9) H 02/09/17 06:08 Plt Count 281 K/MM3 (134-434) 02/09/17 06:08 MPV 9.5 fl (7.5-11.1) D 02/09/17 06:08 Sodium 139 mmol/L (136-145) 02/09/17 06:08 Potassium 3.7 mmol/L (3.5-5.1) 02/09/17 06:08 Chloride 102 mmol/L (98-107) 02/09/17 06:08 Carbon Dioxide 28 mmol/L (21-32) 02/09/17 06:08 Anion Gap 9 (8-16) 02/09/17 06:08 BUN 13 mg/dL (7-18) 02/09/17 06:08 Creatinine 0.7 mg/dL (0.7-1.3) D 02/09/17 06:08 Creat Clearance w eGFR > 60 (>60) 02/09/17 06:08 Random Glucose 103 mg/dL (74-106) 02/09/17 06:08 Calcium 8.9 mg/dL (8.5-10.1) 02/09/17 06:08 Total Bilirubin 0.5 mg/dL (0.2-1.0) 02/09/17 06:08 AST 8 U/L (15-37) L D 02/09/17 06:08 ALT 18 U/L (12-78) 02/09/17 06:08 Alkaline Phosphatase 80 U/L (45-117) 02/09/17 06:08 Total Protein 6.8 g/dl (6.4-8.2) 02/09/17 06:08 Albumin 3.6 g/dl (3.4-5.0) 02/09/17 06:08 Urine Color Yellow 02/08/17 17:30 Urine Appearance Clear 02/08/17 17:30 Urine pH 5.0 (5.0-8.0) 02/08/17 17:30 Ur Specific [place] 1.020 (1.005-1.025) 02/08/17 17:30 Urine Protein Negative (NEGATIVE) 02/08/17 17:30 Urine Glucose (UA) Negative (NEGATIVE) 02/08/17 17:30 Urine Ketones Negative (NEGATIVE) 02/08/17 17:30 Urine Blood Negative (NEGATIVE) 02/08/17 17:30 Urine Nitrite Negative (NEGATIVE) 02/08/17 17:30 Urine Bilirubin Negative (NEGATIVE) 02/08/17 17:30 Urine Urobilinogen Negative mg/dL (0.2-1.0) 02/08/17 17:30 Ur Leukocyte Esterase Negative (NEGATIVE) 02/08/17 17:30 RPR Titer Nonreactive (NONREACTIVE) 02/09/17 06:08 Assessment: 02/10/17 13:36 WITHDRAWAL SYMPTOM Plan: CONTINUE DETOX
[2017-02-10] MEDS: NICOTINE POLACRILEX 4 MG GUM BUC PRN (17:51)
[2017-02-10] MEDS: hydrOXYzine PAMOATE 25 MG CAPSULE (FP) PO PRN (17:51)
[2017-02-10] MEDS: diphenhydrAMINE HCL 50 MG CAPSULE PO PRN (22:12)
[2017-02-10] MEDS: THIAMINE HCL 100 MG TABLET (FP) PO SCH (22:12)
[2017-02-11] MEDS: diazePAM 5 MG TABLET PO PRN (05:32)
[2017-02-11 09:41] VITALS: BP 138/76; PULSE 68; TEMP 97
--- NOTE | 2017-02-11 09:50 | PN ---
[facility] Progress Note (SOAP) Subjective: I feel great I have no withdrawals and I would like to leave today regular d/c. Objective: 02/11/17 09:44 Vital Signs Temperature 97.0 F L 02/11/17 09:40 Pulse Rate 68 02/11/17 09:40 Respiratory Rate 18 02/11/17 09:40 Blood Pressure 138/76 02/11/17 09:40 O2 Sat by Pulse Oximetry (%) Laboratory Tests 02/08/17 02/09/17 02/09/17 17:30 06:08 06:08 WBC 9.6 RBC 4.30 Hgb 12.6 Hct 37.4 MCV 87.0 MCH 29.2 MCHC 33.6 RDW 16.3 H Plt Count 281 MPV 9.5 D Sodium 139 Potassium 3.7 Chloride 102 Carbon Dioxide 28 Anion Gap 9 BUN 13 Creatinine 0.7 D Creat Clearance w eGFR > 60 Random Glucose 103 Calcium 8.9 Total Bilirubin 0.5 AST 8 L D ALT 18 Alkaline Phosphatase 80 Total Protein 6.8 Albumin 3.6 Urine Color Yellow Urine Appearance Clear Urine pH 5.0 Ur Specific [place] 1.020 Urine Protein Negative Urine Glucose (UA) Negative Urine Ketones Negative Urine Blood Negative Urine Nitrite Negative Urine Bilirubin Negative Urine Urobilinogen Negative Ur Leukocyte Esterase Negative RPR Titer 02/09/17 06:08 WBC RBC Hgb Hct MCV MCH MCHC RDW Plt Count MPV Sodium Potassium Chloride Carbon Dioxide Anion Gap BUN Creatinine Creat Clearance w eGFR Random Glucose Calcium Total Bilirubin AST ALT Alkaline Phosphatase Total Protein Albumin Urine Color Urine Appearance Urine pH Ur Specific [place] Urine Protein Urine Glucose (UA) Urine Ketones Urine Blood Urine Nitrite Urine Bilirubin Urine Urobilinogen Ur Leukocyte Esterase RPR Titer Nonreactive AAOx3 ambulating no acute distress Assessment: 02/11/17 09:47 no s/s of withdrawals Plan: d/c today after last dose.
--- NOTE | 2017-02-11 09:51 | DS ---
[facility] Detox Discharge Summary Admission Date: 02/08/17 Discharge Date: 02/11/17 - History Present History: Opioid Dependence - Physical Exam Results Vital Signs: Vital Signs Temperature 97.0 F L 02/11/17 09:40 Pulse Rate 68 02/11/17 09:40 Respiratory Rate 18 02/11/17 09:40 Blood Pressure 138/76 02/11/17 09:40 O2 Sat by Pulse Oximetry (%) - Treatment Hospital Course: Detox Protocol Followed, Detoxed Safely, Responded well, Discharged Condition Good, Rehab Referral Accepted - Medication Discharge Medications: Ambulatory Orders NK [No Known Home Medication] 12/04/16 - Diagnosis (1) Opioid dependence with withdrawal Current Visit: Yes Status: Chronic - AMA Did Patient Leave Against Medical Advice: No
[2017-02-11] MEDS ORDERED: METHADONE HCL 5 MG TABLET (FOR DETOX USE ONLY) PO ONE (10:00)
[2017-02-11] MEDS ORDERED: METHADONE HCL 10 MG TABLET (FOR DETOX USE ONLY) PO ONE (10:00)
[2017-02-11] MEDS: PRENATAL VITAMINS W/ FOLIC ACID TABLET (FP) PO SCH (10:07)
[2017-02-11] MEDS: cloNIDine HCL 0.1 MG TABLET PO SCH (10:07)
[2017-02-12] MEDS ORDERED: METHADONE HCL 10 MG TABLET (FOR DETOX USE ONLY) PO ONE (10:00)
[2017-02-13] MEDS ORDERED: METHADONE HCL 5 MG TABLET (FOR DETOX USE ONLY) PO ONE (06:00)
== END 2017-02-11 10:35 | disposition home or self-care (01) | DRG 773 ==
LOC: YASAS 08:47 → Y6N 13:15
PROVIDERS: ADMIT Internal Medicine; ATTEND Internal Medicine
PROC: HZ2ZZZZ Detoxification Services for Substance Abuse Treatment (ICD-10-PCS; principal; 2017-02-08)
DX: F11.23 Opioid dependence with withdrawal (principal); F14.20 Cocaine dependence, uncomplicated; F17.210 Nicotine dependence, cigarettes, uncomplicated; B18.2 Chronic viral hepatitis C; E66.9 Obesity, unspecified; Z68.39 Body mass index [BMI] 39.0-39.9, adult
CPT/HCPCS: 36415; 80053; 81003; 85027; 86593; 93005; 93010